=== PATIENT | male | born 1935 | race Caucasian/White ===

== ENCOUNTER → 2016-09-23 | Outpatient (CLI) | payer BC ==
[~2016-09-23] MED LIST: AMOX875T PO; ASPI81TA28 PO; CHOLTAB3 PO; SIMV5TAB5 PO
--- NOTE | 2016-09-23 16:50 | ECHOCARDIOGRAM REPORT ---
*NOTICE TO RECEIVING [employer] This information is strictly Confidential and protected under [place] law. [place] law prohibits you from making any further disclosure of this information unless further disclosure is expressly permitted by the written consent of the person to whom it pertains or is authorized by law. A general authorization for the release of medical or other information is not sufficient for this purpose. Hospital accepts no responsibility if the information is made available to any other person, INCLUDING THE PATIENT. Interpretation Summary * Name: Cali EDEN Study Date: 09/23/2016 12:32 PM BP: 131/75 mmHg * Patient Location: [facility] HR: 56 * : 1935 (M/d/yyyy) Gender: Male Height: 70 in * Age: 81 yrs Ethnicity: CA Weight: 155 lb * Ordering Physician: Seun Zayas * Performed By: Kaylee Fraga RDCS * * Reason For Study: NEOPLASM * BSA: 1.9 m2 * History: NEOPLASM * -- Conclusions -- * Left ventricular systolic function is normal. * No regional wall motion abnormalities noted. * Ejection Fraction = 50-55%. * There is mild tricuspid regurgitation. Procedure Details * A complete two-dimensional transthoracic echocardiogram was performed (2D, M-mode, Doppler and color flow Doppler). Left Ventricle * The left ventricle is normal in size. * There is normal left ventricular wall thickness. * Ejection Fraction = 50-55%. * Left ventricular systolic function is normal. * No regional wall motion abnormalities noted. Right Ventricle * The right ventricle is grossly normal size. * The right ventricular systolic function is normal as assessed by tricuspid annular plane systolic excursion (TAPSE) (normal >1.5 cm). Atria * Borderline left atrial enlargement. * The right atrium is mildly dilated. * There is no evidence of atrial septal defect, but resolution does not allow assessment for a patent foramen ovale. Mitral Valve * The mitral valve is normal in structure and function. * There is no mitral valve stenosis. * Significant mitral regurgitation is absent. Tricuspid Valve * The tricuspid valve is not well visualized, but is grossly normal. * There is mild tricuspid regurgitation. Aortic Valve * The aortic valve is normal in structure and function. * No hemodynamically significant valvular aortic stenosis. * No aortic regurgitation is present. Pulmonic Valve * The pulmonic valve is not well visualized. Great Vessels * The aortic root is normal size. Pericardium/Pleural * There is no pericardial effusion. Great Vessels * IVC not well seen. MMode 2D Measurements and Calculations IVSd 0.97 cm IVSs 1.2 cm LVIDd 4.3 cm LVIDs 3.0 cm LVPWd 0.82 cm LVPWs 1.3 cm IVS/LVPW 1.2 FS 29.9 % EDV(Teich) 83.7 ml ESV(Teich) 35.7 ml EF(Teich) 57.4 % EDV(cubed) 80.3 ml ESV(cubed) 27.7 ml EF(cubed) 65.6 % % IVS thick 27.1 % % LVPW thick 63.1 % LV mass(C)d 122.8 grams LV mass(C)dI 65.5 grams/m\S\2 LV mass(C)s 122.8 grams LV mass(C)sI 65.6 grams/m\S\2 SV(Teich) 48.0 ml SI(Teich) 25.6 ml/m\S\2 SV(cubed) 52.6 ml SI(cubed) 28.1 ml/m\S\2 Ao root diam 3.5 cm Ao root area 9.9 cm\S\2 LA dimension 3.1 cm LA/Ao 0.88 LVAd ap4 31.2 cm\S\2 LVLd ap4 7.9 cm EDV(MOD-sp4) 106.0 ml EDV(sp4-el) 105.5 ml LVAs ap4 19.6 cm\S\2 LVLs ap4 6.7 cm ESV(MOD-sp4) 50.8 ml ESV(sp4-el) 48.4 ml EF(MOD-sp4) 52.1 % EF(sp4-el) 54.2 % LVAd ap2 28.9 cm\S\2 LVLd ap2 7.9 cm EDV(MOD-sp2) 91.0 ml EDV(sp2-el) 90.0 ml LVAs ap2 17.3 cm\S\2 LVLs ap2 6.6 cm ESV(MOD-sp2) 41.2 ml ESV(sp2-el) 38.4 ml EF(MOD-sp2) 54.8 % EF(sp2-el) 57.4 % LVLd %diff 0.30 % EDV(MOD-bp) 97.9 ml LVLs %diff -2.35 % ESV(MOD-bp) 46.3 ml EF(MOD-bp) 52.7 % SV(MOD-sp4) 55.2 ml SI(MOD-sp4) 29.5 ml/m\S\2 SV(MOD-sp2) 49.9 ml SI(MOD-sp2) 26.6 ml/m\S\2 SV(MOD-bp) 51.7 ml SI(MOD-bp) 27.6 ml/m\S\2 SV(sp4-el) 57.1 ml SI(sp4-el) 30.5 ml/m\S\2 SV(sp2-el) 51.7 ml SI(sp2-el) 27.6 ml/m\S\2 Doppler Measurements and Calculations MV E max dawn 41.7 cm/sec MV A max dawn 74.7 cm/sec MV E/A 0.56 MV dec time 0.38 sec Ao V2 max 77.6 cm/sec Ao max PG 2.4 mmHg Ao max PG (full) 0.26 mmHg LV V1 max PG 2.1 mmHg LV V1 max 73.2 cm/sec TR max dawn 204.3 cm/sec
== END | disposition home or self-care (01) ==
LOC: C.CPL 12:28
PROVIDERS: ATTEND Internal Medicine Hematology & Oncology
DX: C85.90 Non-Hodgkin lymphoma, unspecified, unspecified site (principal); R59.1 Generalized enlarged lymph nodes; Z85.46 Personal history of malignant neoplasm of prostate

== ENCOUNTER → 2016-12-24 | Outpatient (CLI) | payer BC ==
--- NOTE | 2016-12-24 09:29 | DIAGNOSTIC IMAGING REPORT ---
PET/CT HISTORY: Lymphoma LYMPHOMA TECHNIQUE: PET/CT was performed from the base of the skull through the pelvis following the intravenous administration of 15.4 mCi of F18-FDG. Non-contrast CT imaging was performed over the same range without breath-hold for attenuation correction of PET images and anatomic correlation, but not for primary interpretation as it is not of standard diagnostic quality. CT DOSE: COMPARISON: 07/28/2016 FINDINGS: HEAD AND NECK: Improved study. No residual cervical adenopathy. No pathologically enlarged nodes. No abnormal metabolic activity characteristics. CHEST: Improved exam. No residual adenopathy within the chest hilar or mediastinal regions. All nodes previously described have rotated to a normal configuration and size. This includes improvement in the axillary regions with no significant residual metabolic activity. ABDOMEN/PELVIS: Improved exam. No significant residual adenopathy within the abdomen or pelvis. Physiologic activity within the gastrointestinal and genitourinary tracts. Considerable improvement in size of the retroperitoneal nodes with the largest residual node measuring 2 cm. No significant residual metabolic activity characteristics. Improvement of retroperitoneal adenopathy bulk is 50-60%. Similar improvement is seen within the soft tissue pelvic region with iliac chain lorena pathology considerably diminished. There is minimal residual with minimal significant abnormal metabolic activity characteristics. The minimal activity is seen within the left soft tissue pelvic region where residual nodes measure to 2.5 cm. SUV characteristics do not exceed 1.9 There is physiologic activity within the urinary bladder. No significant metabolically active inguinal adenopathy is present. MUSCULOSKELETAL: There is no FDG-avid or destructive bone lesion. IMPRESSION: 1. Marked improvement in the scan compared to the prior study. 2. No significant residual metabolically active adenopathy within the neck, chest, or abdomen. 3. Improved pelvic adenopathy with minimal residual adenopathy within the left lateral soft tissue pelvic sidewall region. SUV characteristics do not exceed 1.9 Electronically signed by: Derek Mcmanus M.D. 12/24/2016 9:28 AM Dictated Date/Time: 12/24/2016 9:15 AM
== END | disposition home or self-care (01) ==
LOC: C.PET 07:00
PROVIDERS: ATTEND Internal Medicine Hematology & Oncology
DX: C85.90 Non-Hodgkin lymphoma, unspecified, unspecified site (principal)

== ENCOUNTER → 2017-12-03 | Outpatient (CLI) | payer BC ==
[~2017-12-03] MED LIST changes: +OPTIRAY 320 IV PRN
--- NOTE | 2017-12-03 09:15 | DIAGNOSTIC IMAGING REPORT ---
CHEST, ABDOMEN, AND PELVIS CT WITH CONTRAST CT DOSE: 592.74 mGy.cm HISTORY: LYMPHOMA C= 1.06 10/13/17 TECHNIQUE: Multiaxial CT images of the chest , abdomen, pelvis were performed following the oral and intravenous administration of contrast. A dose lowering technique was utilized adhering to the principles of ALARA. COMPARISON: Chest abdomen pelvis CT 06/12/2017. FINDINGS: The central airways are patent. No pleural effusions. No pneumothorax. Punctate calcified granuloma within the right lung apex. Stable 3 mm subpleural nodule along the right minor fissure. No new or suspicious pulmonary nodules identified. No suspicious lytic or blastic osseous lesions. Left subclavian Port-A-Cath terminates in the distal SVC. Normal caliber thoracic aorta. The heart is normal in size. The central pulmonary arteries are patent. No mediastinal or hilar lymphadenopathy. Stable subcentimeter mediastinal and axillary lymph nodes. Dominant axillary lymph node measures 7 mm, unchanged. Stable 9 mm distal periesophageal lymph node. Dominant mediastinal lymph node measures 9 mm in short axis diameter. No suspicious lytic or blastic osseous lesions within the abdomen or pelvis. The liver, adrenal glands, gallbladder, and right kidney are unremarkable. No hydronephrosis. There is a 1.4 cm cyst within the lower pole the left kidney, unchanged. There is a 2.5 x 1.7 cm cystic lesion at the uncinate process of the pancreas. This demonstrates focal areas of peripheral calcification. There are few punctate calcified granulomas within the spleen. No change in the 3.6 x 1.6 cm lobular perisplenic lesion at the posterior aspect of the spleen. The prostate gland is surgically absent. Bladder is not well-distended. No bowel wall thickening or obstruction. Normal appendix. Mildly enlarged left periaortic and bilateral external iliac lymph nodes remain stable. For example, the left external iliac lymph node continues to measures 14 x 14 cm. Stable inguinal lymph nodes which appear to be within normal limits at this time. IMPRESSION: 1. Overall, no significant change compared to the prior study. 2. No significant lymphadenopathy within the chest. 3. Mildly enlarged left periaortic and external iliac lymph nodes remain stable. 4. Stable 3.8 x 1.6 cm soft tissue nodule abutting the posterior aspect of the spleen. 5. 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 Electronically signed by: Hussain Saenz M.D. 12/03/2017 9:14 AM Dictated Date/Time: 12/03/2017 8:56 AM
== END | disposition home or self-care (01) ==
LOC: C.CTS 08:37
PROVIDERS: ATTEND Internal Medicine Hematology & Oncology
DX: C85.90 Non-Hodgkin lymphoma, unspecified, unspecified site (principal)

== ENCOUNTER → 2018-03-29 | Outpatient (CLI) | payer BC ==
[~2018-03-29] MED LIST changes: -OPTIRAY 320 IV PRN
[2018-03-29 09:14] LABS: BASO % 0.4 %; BASO ABS # 0.02 K/uL (0-0.2); EOS % 2.4 %; EOS ABS # 0.11 K/uL (0-0.5); HEMATOCRIT 44.4 % (42-52); HEMOGLOBIN 15.7 g/dL (14.0-18.0); IG# 0.01 K/uL (0.00-0.02); LYMPH % 17.9 %; LYMPH ABS # 0.83 K/uL (1.2-3.4); MEAN CELL VOLUME 93.5 fL (80-100); MEAN CORPUSCULAR HEMOGLOBIN 33.1 pg (25-34); MEAN CORPUSCULAR HGB CONC 35.4 g/dl (32-36); MEAN PLATELET VOLUME 9.7 fL (7.4-10.4); MONO % 9.3 %; MONO ABS # 0.43 K/uL (0.11-0.59); NEUT % 69.8 %; NEUT ABS # 3.24 K/uL (1.4-6.5); PLATELET COUNT 177 K/uL (130-400); RED CELL DISTRIBUTION WIDTH CV 13.6 % (11.5-14.5); RED CELL DISTRIBUTION WIDTH SD 46.3 fL (36.4-46.3); WHITE BLOOD COUNT 4.64 K/uL (4.8-10.8)
[2018-03-29 09:37] LABS: ALBUMIN 3.3 gm/dl (3.4-5.0); ALKALINE PHOSPHATASE 69 U/L (45-117); ALT/SGPT 41 U/L (12-78); AST/SGOT 26 U/L (15-37); BLOOD UREA NITROGEN 21 mg/dl (7-18); CALCIUM 8.7 mg/dl (8.5-10.1); CARBON DIOXIDE 26 mmol/L (21-32); CREATININE 1.17 mg/dl (0.60-1.40); GLUCOSE 138 mg/dl (70-99); POTASSIUM 3.9 mmol/L (3.5-5.1); SODIUM 140 mmol/L (136-145); TOTAL PROTEIN 6.5 gm/dl (6.4-8.2)
== END | disposition home or self-care (01) ==
LOC: C.LABSPEC 08:59
PROVIDERS: ATTEND Nurse Practitioner Family
DX: C85.90 Non-Hodgkin lymphoma, unspecified, unspecified site (principal)